=== PATIENT | male | born 1970 | race Caucasian/White ===

== ENCOUNTER → 2019-03-28 | Outpatient (CLI) | payer OTHER ==
--- NOTE | 2019-03-29 16:26 | PFR/MVV ---
[facility] [place] [address] PULMONARY FUNCTION MVV/REPORT Name: LAURA DURAND JR [id number] Admission: 03/28/19 Attend Phys: Thomas Robert MD Discharge: Date of : 72 Report #: [id number] THIS REPORT FOR: //name// >> SPIROMETRY: (BTPS) Height: 68 in cm Weight: 210 lbs kg Exam Date: 03/28/19 PRE-RX POST-RX PRED BEST %PRED BEST %PRED %CHG FVC LITERS . 4.65 . 4.98 . 107 . 5.33 . 115 . 7 FEV1 LITERS . 3.49 . 4.42 . 127 . 4.80 . 137 . 8 FEV1/FVC % . 75 . 89 . 119 . 90 . 121 . 1 OCP02-92% L/Sec . 3.59 . 6.13 . 170 . 6.21 . 173 . 1 PEF L/SEC . 8.59 . 8.79 . 102 . 7.90 . 92 . -10 FEF50/FIF50 UNITLESS . <1.00 . 10.63 . . 3.81 . . -64 MVV L/Min . 150 . 101 . 67 f 1/Min . . 90 . >> LUNG VOLUMES: (BTPS) PRE-RX POST-RX PRED AVG %PRED AVG %PRED %CHG VC Liters . 4.65 . 5.56 . 120 . . . TLC Liters . 6.38 . 7.42 . 116 . . . RV Liters . 2.01 . 1.86 . 92 . . . RV/TLC % . 33 . 25 . 76 . . . FRC PL Liters . 3.15 . 2.67 . 85 . . . FRC N2 Liters . 3.15 . . . . . ERV Liters . 1.56 . 0.81 . 52 . . . IC Liters . 3.12 . 4.62 . 148 . . . >> DIFFUSION: DLCO ml/Min/mmHg . 28.0 . 24.7 . 88 . . . DL Dennis ml/Min/mmHg . 28.0 . 24.7 . 88 . . . DLCO/VA ml/Min/mmHg . 4.09 . 4.43 . 109 . . . VA Liters . 6.74 . 5.58 . 83 . . . COMMENTS: COMMENTS: >> RESISTANCE: [facility] [address] [place] [address] PULMONARY FUNCTION MVV/REPORT Name: LAURA DURAND JR [facility] [id number] Admission: 03/28/19 Attend Phys: Thomas Robert MD Discharge: Date of : 72 Report #: [id number] PRE-RX PRED AVG %PRED Raw Total cmH20/L/Sec . . 4.24 . Raw Insp cmH20/L/Sec . . 4.16 . Raw Exp cmH20/L/Sec . . 3.43 . Raw cmH20/L/Sec . 1.47 . 1.00 . 68 Gaw L/Sec/cmH20 . 0.757 . 0.998 . 132 sRaw cmH20 Sec . 4.64 . 3.48 . 75 sGaw l/cmH20 Sec . 0.215 . 0.287 . 134 Vtq Liters . . 3.47 . # = OUTSIDE 95% CONFIDENCE INTERVAL CALIBRATION: PRED: 3.00 ACTUAL: EXP 3.01 INSP 3.02 [facility]OL10-06 [facility] N-1804-4 >> INTERPRETATION/IMPRESSION: CC: Thomas Robert MD Spirometry revealed normal flows. Following bronchodilators, there was significant bronchodilator response. Lung volumes were normal. Diffusion capacity is normal, corrected for alveolar volume. Flow volume loop is normal. IMPRESSION: Normal PFTs, reversible airways is suggested. Clinical correlation is recommended. <ELECTRONICALLY SIGNED> By: Victoriano Schaefer MD 03/29/19 1626 Victoriano Schaefer MD /nt
== END ==
LOC: PUL 03-22 15:55 → RAD 03-22 19:39 → PUL 08:44
DX: R05 Cough (principal)